=== PATIENT | female | born 1990 | race American Indian/Alaskan Native ===

== ENCOUNTER 2019-11-23 10:09 | Emergency (ER) | payer SELFPAY ==
[2019-11-23 10:32] VITALS: BP 118/63
[2019-11-23] MEDS ORDERED: ONDANSETRON 4 MG/2 ML INJ IM ONE (12:24)
[2019-11-23] MEDS ORDERED: KETOROLAC 60 MG/2 ML INJ IM ONE (12:24)
--- NOTE | 2019-11-23 12:29 | Emergency Department Report ---
ED Chest Pain HPI - General Chief Complaint: Chest Pain Stated Complaint: CHEST AND BACK Time Seen by Provider: 11/23/19 12:12 Source: patient Mode of arrival: Ambulatory Limitations: No Limitations - History of Present Illness Initial Comments: Patient is 29 years old female with no significant past medical history except for endometriosis. Patient presented to the ER complaining of chest pain, substernal, sharp in nature. Patient stated that pain started mainly to the back area of the scapular area and then moved to the right side of the chest in the substernal area. Patient stated that she was doing yard work yesterday when she felt this pain. Patient stated that pain increases with movement of the arm. Patient denied any shortness of breath, fever, chills or cough. MD Complaint: chest pain Onset: during exertion Pain Location: substernal, right chest Pain Radiation: back Severity: moderate Quality: sharp Improves With: remaining still Worsens With: movement - Related Data Previous Rx's Medication Instructions Recorded Last Taken Type Cyclobenzaprine [Flexeril] 10 mg PO TID PRN #30 tablet 11/23/19 Unknown Rx Naproxen [Naprosyn] 500 mg PO BID #14 tablet 11/23/19 Unknown Rx Ondansetron [Zofran Odt] 4 mg PO Q8HR PRN #14 tab.rapdis 11/23/19 Unknown Rx Heart Score - HEART Score History: Slightly suspicious EKG: Normal Age: < 45 Risk factors: No known risk factors Troponin: < normal limit HEART Score: 0 - Critical Actions Critical Actions: 0-3 pts:0.9-1.7%risk of adverse cardiac event.Candidate for discharge ED Review of Systems ROS: Stated complaint: CHEST AND BACK Other details as noted in HPI Comment: All other systems reviewed and negative Constitutional: denies: chills, fever Respiratory: denies: cough, shortness of breath, SOB with exertion Cardiovascular: chest pain. denies: palpitations, dyspnea on exertion, orthopnea ED Past Medical Hx - Past Medical History Previous Medical History?: No - Surgical History Past Surgical History?: No - Social History Smoking Status: Never Smoker - Medications Home Medications: Home Medications Medication Instructions Recorded Confirmed Last Taken Type Cyclobenzaprine [Flexeril] 10 mg PO TID PRN #30 tablet 11/23/19 Unknown Rx Naproxen [Naprosyn] 500 mg PO BID #14 tablet 06/01/20 Unknown Rx Ondansetron [Zofran Odt] 4 mg PO Q8HR PRN #14 tab.rapdis 11/23/19 Unknown Rx ED Physical Exam - General Limitations: No Limitations General appearance: alert, in no apparent distress - Head Head exam: Present: atraumatic, normocephalic, normal inspection - Eye Eye exam: Present: normal appearance - ENT ENT exam: Present: normal exam, normal orophraynx, mucous membranes moist - Neck Neck exam: Present: normal inspection, full ROM. Absent: tenderness, meningismus - Respiratory Respiratory exam: Present: normal lung sounds bilaterally, chest wall tenderness - Cardiovascular Cardiovascular Exam: Present: regular rate, normal rhythm, normal heart sounds - GI/Abdominal GI/Abdominal exam: Present: soft, normal bowel sounds. Absent: distended, tenderness, guarding, rebound, rigid, organomegaly, mass, bruit, pulsatile mass, hernia - Extremities Exam Extremities exam: Present: normal inspection, full ROM, normal capillary refill. Absent: pedal edema, calf tenderness - Back Exam Back exam: Present: normal inspection, full ROM. Absent: CVA tenderness (R), CVA tenderness (L) - Neurological Exam Neurological exam: Present: alert, oriented X3, CN II-XII intact, normal gait, reflexes normal. Absent: motor sensory deficit - Psychiatric Psychiatric exam: Present: normal mood - Skin Skin exam: Present: warm, intact, normal color ED Course Vital Signs 11/23/19 10:29 Temperature 98.3 F Pulse Rate 95 H Respiratory 16 Rate Blood Pressure 118/63 O2 Sat by Pulse 100 Oximetry ED Medical Decision Making - EKG Data -: EKG Interpreted by [place] EKG shows normal: sinus rhythm Rate: normal - EKG Data Interpretation: no acute changes - Radiology Data Radiology results: report reviewed - Medical Decision Making Patient is 29 years old female with no significant past medical history except for endometriosis. Patient presented to the ER complaining of chest pain, substernal, sharp in nature. Patient stated that pain started mainly to the back area of the scapular area and then moved to the right side of the chest in the substernal area. Patient stated that she was doing yard work yesterday when she felt this pain. Patient stated that pain increases with movement of the arm. Patient denied any shortness of breath, fever, chills or cough. EKG is unremarkable. Chest x-ray is negative for acute finding. Patient received Toradol 60 mg and Zofran 4 mg. Patient stated that she is feeling much better. Patient has significant reproducible tenderness to the substernal area and to the right side of her chest. Patient symptoms is consistent with costochondritis. Patient stated that she has similar episode like this before. Patient given prescription for Naprosyn and Flexeril. Patient also advised to follow-up with her primary care physician in the next 2 to 3 days and to return to the ER if she develop any new symptoms. Critical care attestation.: If time is entered above; I have spent that time in minutes in the direct care of this critically ill patient, excluding procedure time. ED Disposition Clinical Impression: Chest pain, Acute costochondritis Disposition: TO HOME OR SELFCARE Is pt being admited?: No Condition: Stable Instructions: Chest Pain (ED), Costochondritis (ED) Referrals: [facility] [Provider Group] - 3-5 Days
--- NOTE | 2019-11-23 13:17 | XRay Report ---
CHEST 1 VIEW INDICATION: chest pain. COMPARISON: None. FINDINGS: Support devices: None. Heart: Within normal limits. Lungs/Pleura: No acute air space or interstitial disease. Additional findings: None. IMPRESSION: No acute abnormality. Signer Name: Jcarlos Oliver MD Signed: 11/23/2019 1:12 PM Workstation Name: [id number]
== END 2019-11-23 14:04 | disposition home or self-care (01) ==
LOC: ED 10:09
DX: M94.0 Chondrocostal junction syndrome [Tietze] (principal); R07.9 Chest pain, unspecified; Z79.899 Other long term (current) drug therapy
CPT/HCPCS: 71045; 93005; 96372; 99283; J1885; J2405